=== PATIENT | male | born 1955 | race African-American/Black ===

== ENCOUNTER 2024-08-31 09:01 | Inpatient (IN) | payer OTHER ==
[2024-08-31 09:45] VITALS: BMI 18.5
[2024-08-31] MEDS ORDERED: BISMUTH SUBSALICYLATE 524 MG/30 ML PO PRN (11:28)
[2024-08-31] MEDS ORDERED: BENZOCAINE/MENTHOL (CHLORASEPTIC ) LOZENGE MM PRN (11:28)
[2024-08-31] MEDS ORDERED: BENZONATATE 200 MG CAPSULE PO PRN (11:28)
[2024-08-31] MEDS ORDERED: MAGNESIUM HYDROX 2400MG/30ML ORAL SUSPENSION 30 ML CUP PO PRN (11:28)
[2024-08-31] MEDS ORDERED: ACETAMINOPHEN 325 MG TABLET (FP) PO PRN (11:28)
[2024-08-31] MEDS ORDERED: MAG HYDROX/AL HYDROX/SIMETH 30 ML UNIT-DOSE CUP PO PRN (11:28)
[2024-08-31] MEDS ORDERED: IBUPROFEN 400 MG TABLET (FP) PO PRN (11:28)
[2024-08-31] MEDS ORDERED: NICOTINE POLACRILEX 4 MG GUM BUC PRN (11:28)
[2024-08-31] MEDS ORDERED: NICOTINE POLACRILEX 4 MG LOZENGE BC PRN (11:28)
[2024-08-31] MEDS ORDERED: guaiFENesin 600 MG TABLET.ER (FP) PO PRN (11:28)
[2024-08-31] MEDS ORDERED: DICYCLOMINE HCL 10 MG CAPSULE PO PRN (11:28)
[2024-08-31] MEDS ORDERED: NALOXONE (NARCAN) HCL 4 MG/0.1 ML SPRAY NS PRN (11:28)
[2024-08-31] MEDS ORDERED: POLYETHYLENE GLYCOL (HEALTHYLAX) 3350 17 GM PACKET PO PRN (11:28)
[2024-08-31] MEDS ORDERED: NICOTINE 21 MG/24 HOURS TOPICAL PATCH TD PRN (11:28)
[2024-08-31] MEDS ORDERED: hydrOXYzine PAMOATE 25 MG CAPSULE (FP) PO PRN (11:28)
[2024-08-31] MEDS: TAMSULOSIN HCL 0.4 MG CAP PO SCH (12:23)
[2024-08-31] MEDS: FINASTERIDE 5 MG TABLET (FP) PO SCH (12:23)
[2024-08-31] MEDS: IBUPROFEN 600 MG TABLET (FP) PO PRN (13:01)
[2024-08-31] MEDS: METHOCARBAMOL 500 MG TABLET PO PRN (13:02)
[2024-08-31] MEDS: ONDANSETRON *ODT* 4 MG TABLET SL PRN (15:14)
[2024-08-31] MEDS: LOPERAMIDE HCL 2 MG CAPSULE PO PRN (15:14)
[2024-08-31] MEDS: MELATONIN 5 MG TABLETS PO SCH (22:44)
[2024-08-31] MEDS: THIAMINE 100 MG TABLET PO SCH (22:44)
[2024-09-01] MEDS: amLODIPine BESYLATE 2.5 MG TABLET (FP) PO SCH (10:15)
[2024-09-01] MEDS: PRENATAL VITAMINS W/ FOLIC ACID TABLET (FP) PO SCH (10:15)
[2024-09-01 13:05] LABS: CHLORIDE 104 mmol/L (98-107); POTASSIUM 3.1 mmol/L (3.5-5.1); SODIUM 142 mmol/L (136-145)
[2024-09-01 13:08] LABS: HEMATOCRIT 31.9 % (35.4-49); HEMOGLOBIN 10.9 GM/dL (11.7-16.9); MCHC 34.2 g/dl (32.0-35.9); MEAN CELL VOLUME 96.5 fl (80-96); MEAN PLT VOLUME 7.2 fl (7.5-11.1); PLATELET COUNT 380 10^3/uL (134-434); RDW 15.7 % (11.9-15.9); WHITE BLOOD COUNT 6.6 K/mm3 (4.0-10.0)
[2024-09-01 13:13] LABS: ALBUMIN 2.5 g/dl (3.4-5.0); ANION GAP 7 mmol/L (4-13); BLOOD UREA NITROGEN 9.7 mg/dL (7-18); CALCIUM 8.4 mg/dL (8.5-10.1); CO2 31 mmol/L (21-32)
[2024-09-01 13:14] LABS: GLUCOSE,RANDOM 100 mg/dL (74-106)
[2024-09-01 13:16] LABS: SGOT/AST 21 U/L (15-37)
[2024-09-01 13:18] LABS: BILIRUBIN,TOTAL 0.6 mg/dL (0.2-1); TOT PROT 5.8 g/dl (6.4-8.2)
[2024-09-01 13:19] LABS: ALK PHOS 56 U/L (45-117)
[2024-09-01 13:23] LABS: SGPT/ALT 32 U/L (13-61)
[2024-09-01] MEDS: NALOXONE (NYS OPIOID OVERDOSE PROGRAM) 4 MG/0.1 ML SPRAY NS SCH (14:40)
[2024-09-01] MEDS: POTASSIUM CHLORIDE ORAL LIQUID 20 MEQ/15 ML PO SCH (14:50)
[2024-09-01] MEDS: MELATONIN 5 MG TABLETS PO SCH (22:33)
[2024-09-02 06:21] VITALS: RESP 16
[2024-09-02 13:28] VITALS: BP 116/60; PULSE 67; TEMP 97.6
== END 2024-09-02 13:55 | disposition other institution (70) | DRG 897 ==
LOC: YASAS 09:01 → Y6N 11:22
PROVIDERS: ADMIT Surgery; ATTEND Surgery
PROC: HZ2ZZZZ Detoxification Services for Substance Abuse Treatment (ICD-10-PCS; principal; 2024-08-31)
DX: F10.20 Alcohol dependence, uncomplicated (principal); F14.20 Cocaine dependence, uncomplicated; F19.282 Other psychoactive substance dependence with psychoactive substance-induced sleep disorder; F12.20 Cannabis dependence, uncomplicated; F17.210 Nicotine dependence, cigarettes, uncomplicated; I10 Essential (primary) hypertension; N40.0 Benign prostatic hyperplasia without lower urinary tract symptoms
CPT/HCPCS: 36415; 80053; 80305; 80307; 84132; 85027; 86780; 87811; 93005; 93010; Q0162

== ENCOUNTER 2024-09-02 14:05 | Inpatient (IN) | payer OTHER ==
[~2024-09-02 14:05] MED LIST: ACETAMINOPHEN 325 MG TABLET (FP) PO PRN; BENZOCAINE/MENTHOL (CHLORASEPTIC ) LOZENGE MM PRN; BENZONATATE 200 MG CAPSULE PO PRN; IBUPROFEN 400 MG TABLET (FP) PO PRN; LOPERAMIDE HCL 2 MG CAPSULE PO PRN; MAG HYDROX/AL HYDROX/SIMETH 30 ML UNIT-DOSE CUP PO PRN; MAGNESIUM HYDROX 2400MG/30ML ORAL SUSPENSION 30 ML CUP PO PRN; NICOTINE POLACRILEX 4 MG GUM BUC PRN; NICOTINE POLACRILEX 4 MG LOZENGE BC PRN; POLYETHYLENE GLYCOL (HEALTHYLAX) 3350 17 GM PACKET PO PRN; guaiFENesin 600 MG TABLET.ER (FP) PO PRN
[2024-09-02] MEDS: POTASSIUM CHLORIDE ORAL LIQUID 20 MEQ/15 ML PO SCH (14:45)
[2024-09-02] MEDS: IBUPROFEN 600 MG TABLET (FP) PO PRN (17:46)
[2024-09-02] MEDS: POTASSIUM CHLORIDE ORAL LIQUID 20 MEQ/15 ML PO ONE (22:00)
[2024-09-02] MEDS: THIAMINE 100 MG TABLET PO SCH (22:16)
[2024-09-02] MEDS: METHOCARBAMOL 500 MG TABLET PO PRN (22:16)
[2024-09-02] MEDS: MELATONIN 5 MG TABLETS PO SCH (22:16)
[2024-09-03] MEDS: TAMSULOSIN HCL 0.4 MG CAP PO SCH (07:37)
[2024-09-03 09:21] VITALS: PULSE 70; RESP 18
[2024-09-03] MEDS: NICOTINE 21 MG/24 HOURS TOPICAL PATCH TD SCH (10:11)
[2024-09-03] MEDS: PRENATAL VITAMINS W/ FOLIC ACID TABLET (FP) PO SCH (10:12)
[2024-09-03] MEDS: amLODIPine BESYLATE 2.5 MG TABLET (FP) PO SCH (10:48)
[2024-09-03 11:33] VITALS: BP 126/70; TEMP 97.5
[2024-09-03] MEDS: PNEUMOC 20-VAL CONJ-DIP CRM/PF 0.5 ML SYRINGE IM ONE (12:18)
[2024-09-03] MEDS ORDERED: NALOXONE (NYS OPIOID OVERDOSE PROGRAM) 4 MG/0.1 ML SPRAY NS PRN (14:02)
[2024-09-03] MEDS: NALOXONE (NYS OPIOID OVERDOSE PROGRAM) 4 MG/0.1 ML SPRAY NS SCH (14:07)
== END 2024-09-03 14:33 | disposition left against medical advice (07) | DRG 894 ==
LOC: YASAS 14:05 → Y3NR 14:07 → Y3W 09-03 10:28 → Y5N 09-03 12:00 → Y3W 09-03 12:01
PROVIDERS: ADMIT Psychiatry & Neurology Pain Medicine; ATTEND Psychiatry & Neurology Pain Medicine
PROC: HZ42ZZZ Group Counseling for Substance Abuse Treatment, Cognitive-Behavioral (ICD-10-PCS; principal; 2024-09-02)
DX: F10.20 Alcohol dependence, uncomplicated (principal); F14.20 Cocaine dependence, uncomplicated; F19.282 Other psychoactive substance dependence with psychoactive substance-induced sleep disorder; F12.10 Cannabis abuse, uncomplicated; F17.210 Nicotine dependence, cigarettes, uncomplicated; N40.0 Benign prostatic hyperplasia without lower urinary tract symptoms; Z96.0 Presence of urogenital implants
CPT/HCPCS: 36415; 84132; 90677